=== PATIENT | female | born 1990 | race Caucasian/White ===

== ENCOUNTER 2022-05-17 10:46 | Emergency (ER) | payer OTHER ==
[~2022-05-17] VITALS: Ht 160 cm; Wt 70.3 kg
[2022-05-17] MEDS ORDERED: AMOX-CLAV 875-1 EACH PO (11:04)
== END 2022-05-17 11:12 | disposition home or self-care (01) ==
LOC: ED 10:46
DX: J02.9 Acute pharyngitis, unspecified (principal)